=== PATIENT | female | born 1975 ===

== ENCOUNTER 2018-02-04 11:45 | Outpatient (CLI) | payer OTHER | END 2018-02-04 17:05 | disposition home or self-care (01) | LOC: MAMO-SONO 11:45 | DX: N64.4 Mastodynia (principal) ==

== ENCOUNTER 2019-05-30 13:00 | Outpatient (CLI) | payer OTHER | END 2019-05-30 16:58 | disposition home or self-care (01) | LOC: MAMO-SONO 13:00 | DX: N64.4 Mastodynia (principal); Z12.31 Encounter for screening mammogram for malignant neoplasm of breast; Z87.898 Personal history of other specified conditions ==

== ENCOUNTER → 2020-11-27 | Outpatient (CLI) | payer OTHER | END | disposition home or self-care (01) | LOC: PPH VACUNA | DX: Z23 Encounter for immunization (principal) ==

== ENCOUNTER 2020-12-18 08:00 | Outpatient (CLI) | payer OTHER | END 2020-12-18 08:01 | disposition home or self-care (01) | LOC: PPH VACUNA 08:00 | DX: Z23 Encounter for immunization (principal) ==

== ENCOUNTER 2021-01-15 11:15 | Outpatient (CLI) | payer OTHER | END 2021-01-15 11:27 | disposition home or self-care (01) | LOC: MAMO-SONO 11:15 | DX: N64.4 Mastodynia (principal); O91.22 Nonpurulent mastitis associated with the puerperium; R10.32 Left lower quadrant pain ==

== ENCOUNTER 2021-07-12 09:00 | Outpatient (CLI) | payer OTHER | END 2021-07-12 09:30 | disposition home or self-care (01) | LOC: PPH VACUNA 09:00 | PROVIDERS: ATTEND Emergency Medicine Pediatric Emergency Medicine | DX: Z23 Encounter for immunization (principal) ==

== ENCOUNTER 2022-01-16 14:36 | Outpatient (CLI) | payer OTHER | END 2022-01-16 14:45 | disposition home or self-care (01) | LOC: MAMO-SONO 14:36 | PROVIDERS: ATTEND Family Medicine | DX: Z12.31 Encounter for screening mammogram for malignant neoplasm of breast (principal); N63.0 Unspecified lump in unspecified breast ==

== ENCOUNTER 2023-06-10 13:39 | Outpatient (CLI) | payer OTHER | END 2023-06-10 13:55 | disposition home or self-care (01) | LOC: MAMO-SONO 13:39 | PROVIDERS: ATTEND Family Medicine | DX: Z12.31 Encounter for screening mammogram for malignant neoplasm of breast (principal); R92.323 Mammographic fibroglandular density, bilateral breasts ==

== ENCOUNTER 2025-05-10 11:14 | Outpatient (CLI) | payer OTHER | END 2025-05-10 11:26 | disposition home or self-care (01) | LOC: MAMO-SONO 11:14 | PROVIDERS: ATTEND Obstetrics & Gynecology | DX: N63.0 Unspecified lump in unspecified breast (principal); Z12.31 Encounter for screening mammogram for malignant neoplasm of breast ==